=== PATIENT | female | born 1985 | race Caucasian/White ===

== ENCOUNTER 2017-09-02 13:34 | Emergency (ER) | payer MEDICARE, OTHER ==
[2017-09-02 16:39] LABS: HCG, SERUM QUANTITATIVE 7 MIU/ML
== END 2017-09-02 17:48 | disposition home or self-care (01) ==
LOC: M ED 13:34
DX: N93.9 Abnormal uterine and vaginal bleeding, unspecified (principal); Z88.0 Allergy status to penicillin; Z88.1 Allergy status to other antibiotic agents; Z88.2 Allergy status to sulfonamides; Z98.890 Other specified postprocedural states
CPT/HCPCS: 84702

== ENCOUNTER → 2017-11-29 | Outpatient (CLI) | payer MEDICARE, OTHER | LOC: M LRY 13:41 | DX: S92.354A Nondisplaced fracture of fifth metatarsal bone, right foot, initial encounter for closed fracture (principal); M79.671 Pain in right foot; W10.8XXA Fall (on) (from) other stairs and steps, initial encounter; Y92.9 Unspecified place or not applicable; Y93.9 Activity, unspecified | CPT/HCPCS: 29515; 73630 ==

== ENCOUNTER 2018-03-17 17:04 | Day surgery (SDC) | payer MEDICARE, OTHER, MEDICAID ==
[2018-03-17 17:42] LABS: HEMATOCRIT 39.2 % (36.0-47.0); HEMOGLOBIN 13.5 g/dl (12.0-15.5); MEAN CORPUSCULAR HEMOGLOBIN 31.6 pg (27.0-33.0); MEAN CORPUSCULAR HGB CONC 34.4 g/dl (32.0-36.5); MEAN CORPUSCULAR VOLUME 91.8 fl (80.0-96.0); PLATELET COUNT, AUTOMATED 323 10^3/uL (150-450); RED BLOOD COUNT 4.27 10^6/uL (4.00-5.40); WHITE BLOOD COUNT 6.6 10^3/uL (4.0-10.0)
[2018-03-17 18:04] LABS: ANION GAP 8 MEQ/L (8-16); BLOOD UREA NITROGEN 7 MG/DL (7-18); CALCIUM LEVEL 9.9 MG/DL (8.5-10.1); CARBON DIOXIDE LEVEL 27 MEQ/L (21-32); CHLORIDE LEVEL 104 MEQ/L (98-107); CREATININE FOR GFR 0.58 MG/DL (0.55-1.30); GLOMERULAR FILTRATION RATE > 60.0 (>60); GLUCOSE, FASTING 95 MG/DL (70-100); POTASSIUM SERUM 4.1 MEQ/L (3.5-5.1); SODIUM LEVEL 139 MEQ/L (136-145)
[2018-03-17] MEDS ORDERED: LIDOCAINE 2% INJ 100 MG/5 ML SDV (FOR ANES.) As Ordered (19:24)
[2018-03-17] MEDS ORDERED: MIDAZOLAM INJ 2 MG/2 ML VIAL (J2250) As Ordered (19:24)
[2018-03-17] MEDS ORDERED: PROPOFOL 200 MG/20 ML VIAL As Ordered (19:24)
[2018-03-17] MEDS ORDERED: fentaNYL 100 MCG/2 ML INJECTION (J3010) As Ordered (19:24)
[2018-03-17] MEDS ORDERED: dexameTHASONE 4 MG/ML 1ML VIAL (J1100) As Ordered ×2 (19:46→19:47)
[2018-03-17] MEDS ORDERED: METOCLOPRAMIDE INJ 10MG/2ML VIAL (J2765) As Ordered (19:47)
[2018-03-17] MEDS ORDERED: ONDANSETRON 4MG/2ML VIAL (J2405) As Ordered (19:47)
[2018-03-17] MEDS ORDERED: KETOROLAC 60 MG/2 ML VIAL (J1885) As Ordered (19:47)
[2018-03-17] MEDS ORDERED: OXYTOCIN INJ 10 UNITS/ML VIAL (J2590) As Ordered ×2 (19:47)
[2018-03-17] MEDS: ACETAMINOPHEN 650 MG SUPP As Ordered (19:50)
[2018-03-17] MEDS: CLINDAMYCIN 900 MG/50 ML PREMIX BAG As Ordered (19:59)
[2018-03-17] MEDS ORDERED: fentaNYL 100 MCG/2 ML INJECTION (J3010) IV (20:45)
[2018-03-17] MEDS ORDERED: ONDANSETRON 4MG/2ML VIAL (J2405) IV (20:45)
[2018-03-17] MEDS ORDERED: MORPHINE 10 MG/ML 1ML VIAL (J2270) IV (20:45)
[2018-03-18] MEDS ORDERED: IBUPROFEN 600 MG TAB PO (02:00)
== END 2018-03-17 22:05 | disposition home or self-care (01) ==
LOC: M SDC 22:05
DX: O02.1 Missed abortion (principal); Z88.0 Allergy status to penicillin; Z88.2 Allergy status to sulfonamides
CPT/HCPCS: 59820

== ENCOUNTER 2019-05-19 17:07 | Inpatient (IN) | payer MEDICARE, OTHER, MEDICAID ==
[2019-05-19] VITALS (39 sets, daily range): BP systolic 89–165; BP diastolic 50–91
[~2019-05-19] VITALS: Ht 167.6 cm; Wt 97.7 kg
[~2019-05-19 17:07] MED LIST: CETI10TA; FLUO20CA19; PRENATAL VITAMIN PO; TYLE325T5 PO; ZYRT10CA PO; [UNRECOGNIZED DRUG - OTHER] PO; [UNRECOGNIZED DRUG - OTHER] PV
[2019-05-19] MEDS ORDERED: LR 1,000 ML IV SCH (17:54)
[2019-05-19] MEDS ORDERED: VANCOMYCIN HCL 1,000 MG, VIAL MATE ADAPTER 1 EACH in D5W 250 ML IV SCH (18:00)
[2019-05-19] MEDS ORDERED: LACTATED RINGER'S 1000 ML IV ONE (18:00)
[2019-05-19 18:20] LABS: HEMATOCRIT 39.4 % (36.0-47.0); HEMOGLOBIN 13.3 g/dl (12.0-15.5); MEAN CORPUSCULAR HEMOGLOBIN 32.8 pg (27.0-33.0); MEAN CORPUSCULAR HGB CONC 33.8 g/dl (32.0-36.5); MEAN CORPUSCULAR VOLUME 97.3 fl (80.0-96.0); PLATELET COUNT, AUTOMATED 206 10^3/uL (150-450); RED BLOOD COUNT 4.05 10^6/uL (4.00-5.40)
--- NOTE | 2019-05-19 18:26 | HPE ---
DATE OF ADMISSION: 05/19/2019 A 33-year-old 5, para 1, abortio 3, last menstrual period (LMP) of 08/22/2018, estimated date of confinement (EDC) 05/29/2019 at 38 and 5 in active labor. GBS positive. Risk factors are she is GBS positive, she has a body mass index (BMI) of 30, and she has significant anxiety. PAST HISTORY: In December 2013 at 39 weeks, spontaneous vaginal delivery, female, 7 pounds 12 ounces. February 2017 at 6 weeks, spontaneous with dilatation and curettage (D and C). August 2016, methotrexate-administered and March 2018 a spontaneous with a D and C. LABORATORY DATA: A positive, HIV negative, hepatitis negative, RPR negative, rubella immune, Varicella immune. Urine negative. Gonorrhea and chlamydia negative. One-hour initial glucose was 123, 28 GTT was 106, and GBS was positive. Temperature is 98.0, pulse 95, respirations 18, blood pressure 112/67. Urine 1015, pH 7, +1 leukocyte esterase, blood 250. PHYSICAL EXAMINATION: Distressed. Symphysis fundus height is 40, vertex, occiput transverse (OT), 5-6 cm, stretchy, 100% effaced, -3 station with bulging membranes. The rest of the examination unremarkable. She is normocephalic, atraumatic. Neck: Full range of motion. Pupils equal and reactive to light. Distal pulses are symmetric. No evidence of deep vein thrombosis (DVT), pulmonary embolism (PE) or superficial phlebitis. Chest is clear bilaterally to bases. No wheezes or rhonchi. No costovertebral angle (CVA) tenderness. Abdomen is soft. Four-quadrant bowel sounds are noted. No rashes, lesions, or pruritus. No arthralgia or myalgia. No complaint of joint pain. No complaint of cough, wheeze, shortness of breath, or dyspnea on exertion. No nausea, vomiting, diarrhea, or constipation. No urgency or frequency. No CRYSTAL MOUNTER history. PAST MEDICAL HISTORY: She has anxiety and is weaning herself off of Effexor. SURGICAL HISTORY: D and C times two. In summary, we have a term gestation in active labor. GBS positive, sensitive to clindamycin. The patient has allergies to PENICILLIN and SULFA. Our plan is to hydrate the patient. Prophylaxis if possible for GBS and epidural for pain management.
[2019-05-19] MEDS ORDERED: FENTANYL 2MCG/ML ROPIVACAINE 0.2% IN 0.9% NACL 100ML IVBAG As Ordered ONE (18:57)
[2019-05-19] MEDS ORDERED: LACTATED RINGER'S 1000 ML IV PRN (20:00)
[2019-05-19] MEDS: ePHEDrine SULFATE 25 MG/5 ML(5MG/ML) SYRINGE IV PRN ×2 (20:00→20:04)
[2019-05-19] MEDS ORDERED: diphenhydrAMINE INJ 50MG/ML VIAL (J1200) IV PRN (20:00)
[2019-05-19] MEDS ORDERED: EPIDURAL/PCA KEYS XX PRN (20:00)
[2019-05-19] MEDS ORDERED: ONDANSETRON 4MG/2ML VIAL (J2405) IV PRN (20:00)
[2019-05-19] MEDS ORDERED: REFRIGERATOR IV KEYS XX PRN (20:00)
[2019-05-19] MEDS ORDERED: EPIDURAL COMMENT XX SCH (20:00)
[2019-05-19] MEDS ORDERED: FENTANYL/ROPIVACAINE/NACL BAG 100 ML EPIDURAL SCH (20:00)
[2019-05-19] MEDS ORDERED: NALOXONE INJ 0.4 MG/1 ML VIAL (J2310) IV PRN (20:00)
[2019-05-20] VITALS (11 sets, daily range): BP systolic 95–118; BP diastolic 53–71
[2019-05-20] MEDS ORDERED: OXYTOCIN 30 UNITS IN 0.9% NaCl 500ML IV BAG (J2590) As Ordered ONE (00:37)
[2019-05-20] MEDS ORDERED: OXYTOCIN INJ 10 UNITS/ML VIAL (J2590) IV ONE (01:15)
[2019-05-20] MEDS ORDERED: RHOGAM 300 MCG (1500 IU) INJ (J2790) IM SCH (01:15)
[2019-05-20] MEDS ORDERED: MEASLES,MUMPS,RUBELLA VACCINE INJ (MMR-II) (90707) SC SCH (01:15)
[2019-05-20] MEDS ORDERED: ANUSOL HC CREAM 30GM TOP PRN (01:15)
[2019-05-20] MEDS ORDERED: IBUPROFEN 600 MG TAB PO PRN (01:15)
[2019-05-20] MEDS ORDERED: MOM 30ML SUSPENSION UDC PO PRN (01:15)
[2019-05-20] MEDS ORDERED: DOCUSATE SODIUM 100 MG CAP PO PRN (01:15)
[2019-05-20] MEDS ORDERED: OXYTOCIN DRIP 30 UNITS in IV 1 EA IV ONE (01:15)
[2019-05-20] MEDS ORDERED: DIBUCAINE 1% OINTMENT 30GM TOP PRN (01:15)
[2019-05-20] MEDS ORDERED: METHYLERGONOVINE MALEATE 0.2 MG TAB PO PRN (01:15)
[2019-05-20] MEDS ORDERED: ACETAMINOPHEN TAB 650MG DOSE (2X325MG) PO PRN (01:15)
[2019-05-20 01:30] LABS: CORD GAS ABE V -1.5; CORD GAS HCO3 V 25.8 MEQ/L; CORD GAS O2 SAT V 31.7 %; CORD GAS PCO2 V 53.1 mmHg; CORD GAS PH V 7.304 UNITS; CORD GAS PO2 V 15.6 mmHg; CORD GAS SBC V 21.6 MEQ/L; CORD GAS TCO2 V 27.4 MEQ/L
[2019-05-20 01:33] LABS: CORD GAS ABE A -1.5; CORD GAS HCO3 A 25.3 MEQ/L; CORD GAS PCO2 A 50.8 mmHg; CORD GAS PH A 7.315 UNITS; CORD GAS SBC A 21.8 MEQ/L; CORD GAS TCO2 A 26.9 MEQ/L
[2019-05-20] MEDS ORDERED: OXYTOCIN INJ 10 UNITS/ML VIAL (J2590) As Ordered ONE (03:54)
[2019-05-20] MEDS: IBUPROFEN 800 MG TAB PO PRN ×3 (04:03→23:00)
[2019-05-20] MEDS: PRENATAL VITAMINS CHEWABLE TABLET PO SCH (09:08)
[2019-05-20] MEDS: ACETAMINOPHEN 500 MG TAB PO PRN (09:09)
--- NOTE | 2019-05-20 15:17 | DN ---
DATE: 05/20/2019 This lady came in in active labor at 35 weeks of gestation. Had an epidural in place. Had a spontaneous vaginal delivery live- female infant, weighing 8 pounds 5 ounces, 3770 grams. scores of 9 and 9 at one and five minutes, respectively. Arterial and venous pH were performed. Cord was loose around the neck once and terminal meconium at delivery. Placenta delivered spontaneously thereafter. Three-vessel cord, membranes, and tissues intact. Uterus contracted well down under Pitocin. The examination revealed anterior, posterior, and lateral cardenas were intact. Sphincter was tight. No tears were noted. The patient and baby tolerating procedure well.
[2019-05-21] MEDS: ACETAMINOPHEN 500 MG TAB PO PRN (03:11)
[2019-05-21 06:00] VITALS: BP 106/69
[2019-05-21 06:48] LABS: HEMATOCRIT 35.6 % (36.0-47.0); HEMOGLOBIN 11.7 g/dl (12.0-15.5); MEAN CORPUSCULAR HGB CONC 32.9 g/dl (32.0-36.5); MEAN CORPUSCULAR VOLUME 97.3 fl (80.0-96.0); PLATELET COUNT, AUTOMATED 178 10^3/uL (150-450); RED BLOOD COUNT 3.66 10^6/uL (4.00-5.40)
[2019-05-21] MEDS: PRENATAL VITAMINS CHEWABLE TABLET PO SCH (09:31)
--- NOTE | 2019-05-21 10:17 | IPNPDOC ---
Text Note Date of Service The patient was seen on 05/21/19. NOTE OB Considerations: Anxiety, previously on Effexor, follows by outside BMI 30 GBS+ 33y/o [id number] s/p @ 38+6 wks following admission for active labor. This morning, patient complains of mild back soreness. Denies fevers/chills. Ambulating and voiding without difficulty. Tolerating regular diet. Lochia diminishing. Bottle feeding - infant with some difficulty with feeds. PE: Reviewed. Normotensive, afebrile. Gen: Alert and oriented Resp: non labored breathing CV: well perfused Abd: Soft, NT/ND. U-2. Ext: No edema, erythema or calf tenderness HCT 39.4 -> 35.6 A/p: 33y/o [id number] s/p @ 38+6 wks, doing well on PPD#2 -Encourage hydration, ambulation -Feeding: Bottle -Contraception: Desires DEBBY at 4-6 weeks -Pain well controlled -A Pos, Rubella immune -Anticipate discharge today if infant ready for discharge VS,Fishbone, I+O VS, Fishbone, I+O Laboratory Tests 05/21/19 06:22 Red Blood Count 3.66 L, Mean Corpuscular Volume 97.3 H, Mean Corpuscular Hemoglobin 32.0, Mean Corpuscular Hemoglobin Concent 32.9, Red Cell Distribution Width 13.7 Vital Signs Date Time Temp Pulse Resp B/P (MAP) Pulse Ox O2 Delivery O2 Flow Rate FiO2 05/21/19 06:00 97.5 63 18 106/69 (81) I&O- Last 24 Hours up to 6 AM 05/21/19 06:00 Intake Total 360 ml Output Total 450 ml Balance -90 ml Vy White MD May 21, 2019 10:17
--- NOTE | 2019-05-21 10:20 | OBDS ---
[facility] Obstetrical Discharge Sum. Obstetrical Discharge Summary Healthcare Advisory Services Manager/Provider: Vy White MD Date: May 21, 2019 Time: 10:17 : 5 Term: 2 Pre-term: 0 Abortions: 3 Livin VDRL: Non-Reactive Rh: Positive Rubella: Immune Labor Admitted in active labor. Delivery Uncomplicated @ 38+5 wks, loose cord x1, terminal meconium. Sex: Female Weight: pounds (8), ounces (5), grams (3770) Anesthesia: Regional Anesthesia Episiotomy None A/P, Post Course List any complications Admission diagnosis: Labor Discharge diagnosis: Single live Condition at Discharge: Stable Discharge Instructions: Home Activity: As tolerated. Discussed pelvic rest x6 weeks. Diet: Regular Medications: Given to patient. Will need DEBBY prescribed at 6 wks . Discussed need for abstinence until then. Follow-up: at 6 weeks at [facility] - patient to schedule Other: Long discussion about depression and return precautions had with patient. Vy White MD May 21, 2019 10:20
[2019-05-21] MEDS ORDERED: ACET1TAB55 PO (10:22)
[2019-05-21] MEDS ORDERED: DIBU10OI TOP (10:22)
[2019-05-21] MEDS ORDERED: COLA100C5 PO (10:22)
[2019-05-21] MEDS ORDERED: IBUP80TA PO (10:22)
[2019-05-21] MEDS ORDERED: INFLUENZA QUADRIVALENT PF VACCINE 0.5ML SYRINGE (90686) IM ONE (14:00)
== END 2019-05-21 13:50 | disposition home or self-care (01) | DRG 807 ==
LOC: M LDO 17:07 → M LDI 17:51 → M OBS 05-20 03:07
PROVIDERS: ADMIT Obstetrics & Gynecology; ATTEND Obstetrics & Gynecology
PROC: 10E0XZZ Delivery of Products of Conception, External Approach (ICD-10-PCS; principal; 2019-05-20)
DX: O99.344 Other mental disorders complicating childbirth (principal); Z37.0 Single live birth; F41.9 Anxiety disorder, unspecified; O99.824 Streptococcus B carrier state complicating childbirth; Z3A.38 38 weeks gestation of pregnancy; O69.81X0 Labor and delivery complicated by cord around neck, without compression, not applicable or unspecified; O77.0 Labor and delivery complicated by meconium in amniotic fluid